=== PATIENT | male | born 1950 | race Caucasian/White ===

== ENCOUNTER 2020-09-30 19:00 | Inpatient (IN) | payer BC, OTHER ==
[2020-09-30] MEDS ORDERED: ACETAMINOPHEN 325 MG TABLET (FP) PO ONE (20:03)
[2020-09-30 21:17] LABS: INR 1.04 (0.83-1.09); PROTHROMBIN TIME (PATIENT) 12.8 SEC (9.7-13.0)
[2020-09-30 21:19] LABS: ACTIVATED PTT 39.9 SECONDS (25.2-36.5)
[2020-09-30 21:23] LABS: POTASSIUM 4.5 mmol/L (3.5-5.1)
[2020-09-30 21:25] LABS: CALCIUM 9.4 mg/dL (8.5-10.1)
[2020-09-30 21:26] LABS: ALBUMIN 3.7 g/dl (3.4-5.0); BLOOD UREA NITROGEN 19.5 mg/dL (7-18)
[2020-09-30 21:29] LABS: CREATININE 1.3 mg/dL (0.55-1.3)
[2020-09-30 21:30] LABS: BASO % 0.5 % (0-2.0); EOS % 1.2 % (0-4.5); HEMATOCRIT 34.2 % (35.4-49); HEMOGLOBIN 11.4 GM/dL (11.7-16.9); LYMPH % 13.9 % (8-40); MCH 26.6 pg (25.7-33.7); MCHC 33.4 g/dl (32.0-35.9); MEAN CELL VOLUME 79.5 fl (80-96); MEAN PLT VOLUME 8.5 fl (7.5-11.1); MONO % 7.6 % (3.8-10.2); NEUT % 76.8 % (42.8-82.8); PLATELET COUNT 315 K/MM3 (134-434); RDW 14.4 % (11.9-15.9); WHITE BLOOD COUNT 16.1 K/mm3 (4.0-10.0)
[2020-09-30 21:31] LABS: BILIRUBIN,TOTAL 0.6 mg/dL (0.2-1); TOT PROT 7.3 g/dl (6.4-8.2)
[2020-09-30 21:34] LABS: N-TERMINAL BNP 1487.6 pg/ml (5-125)
[2020-10-01 00:11] LABS: PH,URINE 8.5 (5.0-8.0); URINE APPEARANCE CLEAR; URINE BILIRUBIN NEGATIVE (NEGATIVE); URINE COLOR YELLOW; URINE GLUCOSE (UA) 3+ (NEGATIVE); URINE KETONE NEGATIVE (NEGATIVE); URINE LEUK ESTERASE NEGATIVE (NEGATIVE); URINE NITRITE NEGATIVE (NEGATIVE); URINE PROTEIN NEGATIVE (NEGATIVE); URINE UROBILINOGEN 0.2 mg/dL (0.2-1.0)
[2020-10-01] MEDS ORDERED: ACETAMINOPHEN 325 MG TABLET (FP) PO PRN (00:42)
[2020-10-01] MEDS ORDERED: ASPIRIN COATED 81 MG TABLET.EC PO ONE (00:46)
[2020-10-01 05:06] VITALS: BMI 28.8
[2020-10-01] MEDS: INSULIN SLIDING SCALE (NOVOLOG) 1 VIAL SQ SCH ×4 (06:44→21:09)
[2020-10-01 07:09] LABS: BASO % 0.8 % (0-2.0); EOS % 1.8 % (0-4.5); HEMATOCRIT 32.7 % (35.4-49); MCH 26.9 pg (25.7-33.7); MCHC 33.7 g/dl (32.0-35.9); MEAN CELL VOLUME 79.8 fl (80-96); MEAN PLT VOLUME 8.2 fl (7.5-11.1); MONO % 10.4 % (3.8-10.2); PLATELET COUNT 287 K/MM3 (134-434); RDW 14.4 % (11.9-15.9); WHITE BLOOD COUNT 10.1 K/mm3 (4.0-10.0)
[2020-10-01 07:39] LABS: CALCIUM 8.9 mg/dL (8.5-10.1); MAGNESIUM 1.8 mg/dL (1.8-2.4)
[2020-10-01 07:41] LABS: CREATININE 1.2 mg/dL (0.55-1.3)
[2020-10-01 07:42] LABS: ALBUMIN 3.2 g/dl (3.4-5.0)
[2020-10-01 07:43] LABS: TOT PROT 6.5 g/dl (6.4-8.2)
[2020-10-01 07:45] LABS: PHOSPHOROUS 3.7 mg/dL (2.5-4.9)
[2020-10-01] MEDS: ASPIRIN COATED 81 MG TABLET.EC PO SCH (10:00)
[2020-10-01] MEDS: ENOXAPARIN NA (PORCINE) 40 MG/0.4 ML DISP.SYRIN SQ SCH (10:37)
[2020-10-01] MEDS: RANOLAZINE E.R. 500 MG TABLET (FP) PO SCH ×2 (10:40→21:09)
[2020-10-01] MEDS: PSYLLIUM 5.85 GM PACKET PO SCH ×2 (14:42→21:33)
[2020-10-01] MEDS: metoPROLOL SUCCINATE 25 MG TAB.SR.24H (FP) PO SCH ×2 (16:42→18:11)
[2020-10-01] MEDS: FUROSEMIDE 40 MG/4 ML INJECTABLE VIAL IVPUSH SCH (16:44)
[2020-10-01] MEDS ORDERED: ATORVASTATIN CA 40 MG TABLET (FP) PO SCH (22:00)
[2020-10-01] MEDS ORDERED: traZODone HCL 50 MG TABLET (FP) PO PRN (22:00)
[2020-10-02 06:06] VITALS: BP 114/62; PULSE 68; TEMP 98.1
[2020-10-02] MEDS: INSULIN SLIDING SCALE (NOVOLOG) 1 VIAL SQ SCH ×3 (06:56→11:15)
[2020-10-02] MEDS: PSYLLIUM 5.85 GM PACKET PO SCH (06:56)
[2020-10-02] MEDS ORDERED: INSULIN (LEVEMIR) 100 UNITS/ML UNITS SQ SCH (07:00)
[2020-10-02] MEDS ORDERED: LEVOTHYROXINE NA 150 MCG TABLET PO SCH (07:00)
[2020-10-02 07:33] LABS: BLOOD UREA NITROGEN 23.7 mg/dL (7-18); CALCIUM 9.4 mg/dL (8.5-10.1)
[2020-10-02 07:34] LABS: ALBUMIN 3.2 g/dl (3.4-5.0); MAGNESIUM 1.8 mg/dL (1.8-2.4)
[2020-10-02 07:36] LABS: CREATININE 1.1 mg/dL (0.55-1.3)
[2020-10-02 07:38] LABS: BILIRUBIN,TOTAL 0.6 mg/dL (0.2-1); TOT PROT 6.6 g/dl (6.4-8.2)
[2020-10-02] MEDS ORDERED: PT OWN MED DRAWER 7, Y5N ONE (10:01)
[2020-10-02] MEDS: FUROSEMIDE 40 MG/4 ML INJECTABLE VIAL IVPUSH SCH (11:10)
[2020-10-02] MEDS: ENOXAPARIN NA (PORCINE) 40 MG/0.4 ML DISP.SYRIN SQ SCH (11:11)
[2020-10-02] MEDS: RANOLAZINE E.R. 500 MG TABLET (FP) PO SCH (11:52)
[2020-10-02] MEDS: ASPIRIN COATED 81 MG TABLET.EC PO SCH (11:52)
== END 2020-10-02 14:59 | disposition short-term general hospital (02) | DRG 311 ==
LOC: JER 19:00 → JERBED 20:50 → OBSVTOIN 10-01 00:42 → J4W 10-01 03:41
PROVIDERS: ADMIT Hospitalist
DX: I24.9 Acute ischemic heart disease, unspecified (principal); I25.10 Atherosclerotic heart disease of native coronary artery without angina pectoris; Z95.1 Presence of aortocoronary bypass graft; R06.02 Shortness of breath; E78.5 Hyperlipidemia, unspecified; I10 Essential (primary) hypertension; E11.9 Type 2 diabetes mellitus without complications; E03.9 Hypothyroidism, unspecified; R07.9 Chest pain, unspecified; D72.829 Elevated white blood cell count, unspecified; Z79.4 Long term (current) use of insulin; Z95.5 Presence of coronary angioplasty implant and graft
CPT/HCPCS: 36415; 71045-TC-FY; 80048; 80053; 80061; 81003; 82728; 82962; 83036; 83615; 83721; 83735; 83880; 84100; 84484; 85025; 85610; 85730; 86140; 87086; 93005; 93010; 93306-TC; 99285-25; C9803; G0378; U0003